=== PATIENT | female | born 1980 | race Caucasian/White ===

== ENCOUNTER → 2017-10-10 | Emergency (ER) | payer OTHER ==
[~2017-10-10] VITALS: Ht 170.2 cm; Wt 63.5 kg
== END | disposition home or self-care (01) ==
LOC: ER 22:31
DX: G43.809 Other migraine, not intractable, without status migrainosus (principal)

== ENCOUNTER → 2018-08-08 | Outpatient (CLI) | payer OTHER | END | disposition home or self-care (01) | LOC: SONOGRAMA 09:21 | DX: E04.1 Nontoxic single thyroid nodule (principal) ==

== ENCOUNTER → 2018-12-22 | Emergency (ER) | payer OTHER ==
[~2018-12-22] VITALS: Ht 170.2 cm; Wt 63.5 kg
== END | disposition left against medical advice (07) ==
LOC: ER 23:43
DX: Z53.20 Procedure and treatment not carried out because of patient's decision for unspecified reasons (principal)